=== PATIENT | male | born 1970 | race Caucasian/White ===

== ENCOUNTER → 2022-11-29 | Outpatient (CLI) | payer OTHER ==
[2022-11-29 18:20] LABS: Basophils # (A) 0.08 X 10*3/uL (0.00-0.10); Basophils % (A) 1.3 %; Eosinophils # (A) 0.22 X 10*3/uL (0.04-0.35); Eosinophils % (A) 3.7 %; HCT 53.8 % (39.6-50.0); HGB 17.6 g/dL (13.0-17.0); Immature Grans, Automated 0.8 %; Lymphocytes # (A) 1.08 X 10*3/uL (0.90-5.00); Lymphocytes % (A) 17.9 %; MCH 29.9 pg (27.0-32.0); MCHC 32.7 g/dL (32.0-37.0); MCV 91.3 fL (80.0-97.0); Mean Platelet Volume 11.9 fL (9.5-12.2); Monocytes # (A) 0.93 X 10*3/uL (0.20-1.00); Monocytes % (A) 15.4 %; NRBC Per 100 WBC 0 /100 WBCS (0.0-0.0); Neutrophils # (A) 3.66 X 10*3/uL (1.80-7.70); Neutrophils % (A) 60.9 %; Platelet Count 264 X 10*3/uL (140-440); RBC 5.89 X 10*6/uL (4.40-5.60); RDW 12.2 % (11.5-14.5); WBC 6.02 X 10*3/uL (4.50-10.00)
[2022-11-29 18:44] LABS: Erythrocyte Sedimentation Rate 10 mm/Hr (0-15)
[2022-11-29 19:02] LABS: ALT 49 U/L (10-49); AST 26 U/L (14-35); African American GFR (CKD) 87.4 (60.0-200.0); Albumin 4.8 g/dL (3.8-4.9); Albumin/Globulin Ratio 1.97 (1.60-3.17); Alkaline Phosphatase 67 U/L (41-126); BUN/Creat Ratio 18.23 Ratio (12.00-20.00); Blood Urea Nitrogen 20.6 mg/dL (9.0-27.0); C Reactive Protein <0.30 mg/dL (0.00-0.80); Calcium 9.7 mg/dL (8.7-10.3); Carbon Dioxide 24.2 mmol/L (20.0-27.5); Chloride 104 mmol/L (96-109); Chol/HDL Ratio 4.81 Ratio; Creatine Kinase 167 U/L (35-257); Globulin 2.4 g/dL (1.6-3.3); Glucose 99 mg/dL (70-110); LDL Cholesterol,Calculated 144.4 mg/dL (0.0-131.0); Non-African American GFR(CKD) 75.4 (60.0-200.0); Potassium 4.5 mmol/L (3.5-5.5); Sodium 141 mmol/L (135-145); Total Protein 7.2 g/dL (6.2-8.2)
[2022-11-29 21:46] LABS: Rheumatoid Factor, Qnt <10 IU/mL (0-15)
== END | disposition home or self-care (01) ==
LOC: LABWHC1 11:47
PROVIDERS: ATTEND Internal Medicine
DX: Z00.00 Encounter for general adult medical examination without abnormal findings (principal); M25.50 Pain in unspecified joint; R79.89 Other specified abnormal findings of blood chemistry
CPT/HCPCS: 36415; 80053; 80061; 82550; 84153; 84402; 84443; 85025; 85652; 86140; 86431